=== PATIENT | female | born 1995 | race Caucasian/White ===

== ENCOUNTER 2020-06-13 17:14 | Emergency (ER) | payer OTHER, SELFPAY ==
--- NOTE | ~2020-06-13 | XR_ITS ---
EXAMINATION: XR foot RT min 3V EXAM DATE: 06/13/2020 17:53 INDICATION: States injured one month ago with right foot pain and numbness aerated states a prior inj ury one year ago. TECHNIQUE: Right foot dorsoplantar, lateral and oblique projections obtained and reviewed. Right ank le frontal, lateral and oblique projections obtained and reviewed. There is no prior study for yong simon. FINDINGS: Right metatarsal bones unremarkable. The right ankle mortise appears intact. No periost eal reaction or band of sclerosis to suggest subacute stress fracture. There are no bony erosions obi ntified. There are no acute fractures or dislocations identified. There is no subcutaneous gas. The soft tissue is unremarkable. There are no radiopaque foreign bodies. IMPRESSION: Unremarkable right foot exam. Reviewed, dictated and finalized at location A.
[2020-06-13 17:33] VITALS: BP 144/95; PULSE 82; RESP 20; TEMP 36.6; O2SAT 100
--- NOTE | 2020-06-13 19:05 | ED.LOWEXIN ---
HPI - Extremity Injury (Lower) General Chief Complaint: Extremity Injury, Lower Stated Complaint: R FOOT NUMB/THROBBING FOR INT FOR MONTHS Time Seen by Provider: 06/13/20 18:05 History of Present Illness HPI Narrative: Patient is a 25-year-old female who presents ER with throbbing right foot pain. Patient reports that she had a foot injury over a year ago that caused her to have to wear a boot and [place] a [place] period. Last night she states she stepped on her foot wrong and she developed some numbness and tingling. Today it has been throbbing. It is worse with palpation over the top of the foot. No swelling or bruising. No numbness tingling at this time. Related Data Allergies Allergy/AdvReac Type Severity Reaction Status Date / Time No Known Drug Allergies Allergy Unknown X Verified 06/13/20 18:01 Fresh Fruit Allergy Intermediate SWELLING/NU Uncoded 06/13/20 17:36 MBNESS Review of Systems Musculoskeletal: Comments: foot pain Neurologic: Reports numbness and Denies weakness PMFSH Past Medical History Medical History (Updated 06/13/20 @ 19:19 by Kana Baig MD) Healthy female adult Surgical History Surgical History (Updated 06/13/20 @ 19:17 by Kana Baig MD) Previous section Social History Social History Gender identity (if verbalized by the patient): Female Exam Narrative: Exam Narrative: GENERAL: Well-appearing, well-nourished, and in no acute distress. HEAD: Normocephalic, atraumatic. EXTREMITIES: Normal range of motion. No edema. Tender to palpation with the top of the right foot. No swelling or bruising. Neurologically intact. SKIN: Warm, dry, no rash. NEURO: Alert and oriented x3. PSYCH: Normal mood and affect. Course Course Emergency Course: Patient informed of results. Recommend wearing her walking boot at home. She cannot wear it at work she may use crutches to bear weight as tolerated. She is to follow-up with primary care physician. Vital Signs Vital signs: Vital Signs Temperature 97.8 F 06/13/20 17:33 Pulse Rate 82 06/13/20 17:33 Respiratory Rate 20 06/13/20 17:33 Blood Pressure 144/95 H 06/13/20 17:33 Pulse Oximetry 100 06/13/20 17:33 Temperature 97.8 F 06/13/20 17:33 Pulse Rate 82 06/13/20 17:33 Respiratory Rate 20 06/13/20 17:33 Blood Pressure 144/95 H 06/13/20 17:33 Pulse Oximetry 100 06/13/20 17:33 Discharge Plan Discharge Clinical Impression: Foot sprain Patient Disposition: Home, Self-Care Condition: Stable Instructions: Foot Sprain (ED) Additional Instructions: Return the ER if you have chest pain or shortness of breath, cannot keep down food or water, you suffered no injury to your foot, rehab is swollen and enlarged calf and foot. Prescriptions: New naproxen 500 mg tablet 500 mg PO BID Qty: 20 RF: 0 Follow-up/Referrals: UNKNOWN,DOCTOR [Primary Care Provider] - 1 Week
== END 2020-06-13 19:26 | disposition home or self-care (01) ==
PROVIDERS: Emergency Provider Emergency Medicine
DX: S93.601A Unspecified sprain of right foot, initial encounter (principal); X50.9XXA Other and unspecified overexertion or strenuous movements or postures, initial encounter
CPT/HCPCS: 73630; 99283

== ENCOUNTER 2020-06-19 16:46 | Emergency (ER) | payer OTHER, SELFPAY ==
--- NOTE | ~2020-06-19 | XR_ITS ---
EXAMINATION: XR foot RT min 3V EXAM DATE: 06/19/2020 17:29 INDICATION: Continued pain after old injury, dorsal right foot pain. TECHNIQUE: Right foot dorsoplantar, lateral and oblique projections obtained and reviewed. Compariso n is made to prior examination from 06/13/2020. FINDINGS: Right metatarsal bones unremarkable. No periosteal reaction or band of sclerosis to sugges t subacute stress fracture. There are no bony erosions identified. No evidence of tarsal coalition. There are no acute fractures or dislocations identified. There is no subcutaneous gas. The soft ti ssue is unremarkable. There are no radiopaque foreign bodies. There is no significant interval aldo nge. IMPRESSION: Unremarkable right foot exam. Reviewed, dictated and finalized at location A.
[2020-06-19 16:48] VITALS: BP 142/110; PULSE 90; RESP 16; TEMP 36.1; O2SAT 100
--- NOTE | 2020-06-19 18:20 | ED.LOWEXIN ---
HPI - Extremity Injury (Lower) General Chief Complaint: Extremity Injury, Lower Stated Complaint: Right Foot Pain after Fall Time Seen by Provider: 06/19/20 18:05 Source: patient Mode of arrival: ambulatory Limitations: no limitations History of Present Illness HPI Narrative: This is a 25-year-old female that presents the emergency department for right foot pain x1 week. Reports several previous injuries to the foot. Is unsure of a certain recent injury. Reports pain is on the dorsal surface of the foot and worse with weightbearing. Relieved with rest and elevation. Reports she has an appointment to see an orthopedic doctor next week. Denies decreased range of motion or numbness. Related Data Home Medications Medication Instructions Recorded Confirmed No Home Medications 06/19/20 06/19/20 Allergies Allergy/AdvReac Type Severity Reaction Status Date / Time Fresh Fruit Allergy Intermediate SWELLING/NU Uncoded 06/19/20 16:54 MBNESS Review of Systems Review of Systems: Narrative: CONSTITUTIONAL: Denies fever SKIN: Denies rash MUSCULOSKELETAL: Reports joint pain, and myalgia. NEUROLOGIC: Denies numbness All systems reviewed & are unremarkable except as noted in HPI and below PMFSH Past Medical History Medical History (Updated 06/19/20 @ 18:27 by Stephanie Burns PA-C) Healthy female adult Surgical History Surgical History (Updated 06/13/20 @ 19:17 by Kana Baig MD) Previous section Social History Social History Gender identity (if verbalized by the patient): Female Exam Narrative: Exam Narrative: GENERAL: Well-appearing, well-nourished, and in no acute distress. HEAD: Normocephalic, atraumatic. EYES: EOMI. EXTREMITIES: Normal range of motion. No edema, erythema or obvious deformity. Normal sensation. Normal DP pulses. Normal posterior tibial pulses SKIN: Warm, dry, no rash. NEURO: No focal deficits. Alert and oriented x3. PSYCH: Normal mood and affect Course Vital Signs Vital signs: Vital Signs Temperature 97 F L 06/19/20 16:48 Pulse Rate 90 06/19/20 16:48 Respiratory Rate 16 06/19/20 16:48 Blood Pressure 142/110 H 06/19/20 16:48 Pulse Oximetry 100 06/19/20 16:48 Temperature 97 F L 06/19/20 16:48 Pulse Rate 90 06/19/20 16:48 Respiratory Rate 16 06/19/20 16:48 Blood Pressure 142/110 H 06/19/20 16:48 Pulse Oximetry 100 06/19/20 16:48 MDM - Extremity Injury (Lower) MDM Narrative Medical decision making narrative: Patient presents to the emergency department for right foot pain. Is unsure of a certain injury. Reports several previous injuries to the foot. Right foot x-ray is without acute findings. Patient is neurovascularly intact. Patient will be given Carlos Alberto wrap and crutches. Instructed to rest, ice and elevate. She is to follow-up with orthopedics. She was given warnings to return to the ER Imaging Data Radiologist's impression: ITS Impressions Foot X-Ray 06/19/20 17:31 IMPRESSION: Unremarkable right foot exam. Critical Care Time Critical Care Time Critical Care Time: No Discharge Plan Discharge Clinical Impression: Chronic pain in right foot Patient Disposition: Home, Self-Care Condition: Stable Instructions: Foot Sprain (ED) Additional Instructions: Return to the emergency department if you experience fever, redness and swelling of your leg, numbness, or any other symptoms that are concerning to you Wear CARLOS ALBERTO wrap and use crutches. No weight on the affected leg. Ice and elevate extremity. Tylenol or ibuprofen as needed for pain Follow up with orthopedics for further care. Prescriptions: No Action No Home Medications RF: 0 Follow-up/Referrals: PHYSICIAN,POLITICAL RESEARCH SCIENTIST [Primary Care Provider] - Stand Alone Forms: Work/School Release IP
== END 2020-06-19 18:53 | disposition home or self-care (01) ==
PROVIDERS: Emergency Provider Emergency Medicine
DX: M79.671 Pain in right foot (principal); G89.29 Other chronic pain
CPT/HCPCS: 73630; 99283

== ENCOUNTER 2020-12-19 10:50 | Emergency (ER) | payer OTHER, SELFPAY ==
--- NOTE | ~2020-12-19 | US_ITS ---
EXAMINATION: US pelvic complete w TV DATE: 12/19/2020 13:41 INDICATION: Right-sided pelvic pain TECHNIQUE: Multiple transabdominal and endovaginal sonographic images of the pelvis were obtained. COMPARISON: CT dated 05/01/2019 FINDINGS: The uterus measures 9.6 x 5.1 x 5.6 cm. The endometrial complex measures <4 mm on the transabdominal imaging. A linear echogenic and shadowing IUD is seen within the endometrial canal of the uterine fu ndus also on the transabdominal view. COVID 19 endometrial complex are now clearly visualized on the transvaginal image due to refraction artifact from the margins of the intervening lower uterine segme nt. The right ovary measures 3.0 x 1.9 x 2.1 cm. The left ovary measures 4.1 x 2.9 x 2.3 cm. And cont ains a 1.9 cm anechoic left ovarian cyst. Vascular flow identified in the ovaries on color Doppler. T here is no free fluid in the pelvis. IMPRESSION: 1. IUD centered in the endometrial canal of the uterine fundus. 2. 1.9 cm left ovarian cyst/follicle. Reviewed, dictated and finalized at location A.
[2020-12-19 10:52] VITALS: BP 138/73; PULSE 74; RESP 18; TEMP 36.9; O2SAT 100
--- NOTE | 2020-12-19 11:42 | ED.ABDPAIN ---
HPI - Abdominal Pain General Chief Complaint: Abdominal Pain Stated Complaint: abd pain, hx ovarian cysts Time Seen by Provider: 12/19/20 11:36 Source: patient Mode of arrival: ambulatory Limitations: no limitations History of Present Illness HPI narrative: This is a 25 year old female that presents to the ER for right sided pelvic pain x 2 days. Reports the pain is sharp in nature. It is constant, but intermittently worse. She does have history of ovarian cysts and reports the pain is similar. Reports she should have started her cycle at the beginning of this month, but did not. She has not taken a test yet. Denies fever, nausea, vomiting, dysuria, or hematuria. Related Data Home Medications Medication Instructions Recorded Confirmed Adults Multivitamin 12/19/20 Allergies Allergy/AdvReac Type Severity Reaction Status Date / Time Fresh Fruit Allergy Intermediate SWELLING/NU Uncoded 12/19/20 10:56 MBNESS Review of Systems Review of Systems: Narrative: CONSTITUTIONAL: Denies fever GASTROINTESTINAL: Reports abdominal pain. Denies nausea, vomiting GENITOURINARY: Denies dysuria or hematuria. All systems reviewed & are unremarkable except as noted in HPI and below PMFSH Past Medical History Medical History (Updated 12/19/20 @ 14:41 by Stephanie Burns PA-C) Healthy female adult Surgical History Surgical History (Updated 06/13/20 @ 19:17 by Kana Baig MD) Previous section Social History Social History Gender identity (if verbalized by the patient): Female Exam Narrative: Exam Narrative: GENERAL: Well-appearing, well-nourished, and in no acute distress. HEAD: Normocephalic, atraumatic. EYES: EOMI. CHEST: Clear to auscultation. No respiratory distress. No wheezes rales or rhonchi HEART: Regular rate and rhythm. No murmur heard. Normal peripheral pulses. ABDOMEN: Soft, nondistended, normal active bowel sounds. Mild tenderness to palpation in the RLQ, without guarding EXTREMITIES: Normal range of motion. No edema. SKIN: Warm, dry, no rash. NEURO: No focal deficits. Alert and oriented x3. PSYCH: Normal mood and affect Course Vital Signs Vital signs: Vital Signs Temperature 98.5 F 12/19/20 10:52 Pulse Rate 74 12/19/20 10:52 Respiratory Rate 18 12/19/20 10:52 Blood Pressure 138/73 12/19/20 10:52 Pulse Oximetry 100 12/19/20 10:52 Temperature 98.5 F 12/19/20 13:15 Pulse Rate 89 12/19/20 14:28 Respiratory Rate 14 12/19/20 14:28 Blood Pressure 118/76 12/19/20 14:28 Pulse Oximetry 97 12/19/20 14:28 MDM - Abdominal Pain MDM Narrative Medical decision making narrative: Patient presents to the emergency department for right-sided pelvic pain intermittent over the last couple of days. She is afebrile and nontoxic-appearing. CBC is without leukocytosis. Metabolic panel and lipase without concerning findings. UA without evidence of infection. Bedside test is negative. Pelvic ultrasound is without acute findings. Shows normal vascular flow to the ovaries. Shows a 1.9 cm left ovarian cyst. No free fluid in the pelvis. Patient updated on case findings. Denies any concern for STDs at this time. 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 She was given warnings to return to the ER Lab Data Attestation: I reviewed the patient's lab results. Result diagrams: 12/19/20 12:21 12/19/20 12:21 Labs: Lab Results 12/19/20 12/19/20 12/19/20 Range/Units 12:21 12:21 12:21 WBC 6.7 (4.5-10.0) K/mm3 RBC 5.56 H (4.2-5.4) M/mm3 Hgb 15.4 H (12.0-15.0) g/dL Hct 46.8 (37.0-47.0) % MCV 84.2 (80-100) fl MCH 27.7 (26-34) pg MCHC 32.9 (32-36) g/dl RDW 12.3 (11.5-14.5) % Plt Count 251 (150-375) k/mm3 MPV 11.3 H (7.4-10.4) fl Immature Gran % (Auto) 0.2 (0-0.5) % Neut % (Auto) 59.4 (45.5-73.1) % Lymph % (Auto) 34.2 (18.3-44.2) % [place] % (Auto) 4
--- NOTE | 2020-12-19 12:01 | PC.NURSE ---
unsuccessful at first two attempts of an IV. Other RN at bedside looking for IV placement with ultrasound.
[2020-12-19 12:03] VITALS: BP 124/75; PULSE 84; RESP 16; O2SAT 98
[2020-12-19 12:31] LABS: Basophils Percent Auto 0.3 % (0.2-1.2); Eosinophils Absolute Auto 0.1 K/mm3 (0-0.3); Eosinophils Percent Auto 1.1 % (0-4.4); Hematocrit 46.8 % (37.0-47.0); Hemoglobin 15.4 g/dL (12.0-15.0); Immature Granulocyte Absolute 0.01 K/mm3 (0.00-0.031); Immature Granulocyte Percent A 0.2 % (0-0.5); Lymphocytes Absolute Auto 2.28 K/mm3 (0.9-3.2); Lymphocytes Percent Auto 34.2 % (18.3-44.2); Mean Corpuscular HGB Conc 32.9 g/dl (32-36); Mean Corpuscular Hemoglobin 27.7 pg (26-34); Mean Corpuscular Volume 84.2 fl (80-100); Mean Platelet Volume 11.3 fl (7.4-10.4); Monocytes Absolute Auto 0.3 K/mm3 (0.1-0.6); Monocytes Percent Auto 4.8 % (2.6-8.5); Neutrophils Percent Auto 59.4 % (45.5-73.1); Platelet Count Result 251 k/mm3 (150-375); Red Blood Count 5.56 M/mm3 (4.2-5.4); Red Cell Distribution Width 12.3 % (11.5-14.5); White Blood Count 6.7 K/mm3 (4.5-10.0)
[2020-12-19 12:40] LABS: Alanine Aminotransferase 16 U/L (4-35); Albumin Level 4.7 g/dL (3.5-5.1); Alkaline Phosphatase 58 U/L (38-126); Anion Gap 8 mmol/L (8-16); Aspartate Amino Transferase 25 U/L (14-36); Bilirubin,Total 1.8 mg/dL (0.2-1.3); Blood Urea Nitrogen 12 mg/dL (7-17); Calcium 9.5 mg/dL (8.4-10.2); Carbon Dioxide 27 mmol/L (22-30); Chloride 107 mmol/L (98-107); Estimated Glomerular Filt Rate > 60; Glucose 115 mg/dL (65-105); Lipase 76 U/L (23-300); Potassium 3.6 mmol/L (3.4-5.0); Sodium 142 mmol/L (137-145)
[2020-12-19 12:55] LABS: Beta HCG Quantitative < 2.39 mIU/ML
[2020-12-19 13:01] VITALS: BP 105/63; PULSE 77; RESP 18; O2SAT 97
[2020-12-19 13:15] VITALS: TEMP 36.9
[2020-12-19 13:24] LABS: Add Urine Microscopic? YES; Appearance Urine Cloudy (Clear); Bacteria Urine Trace /hpf; Bilirubin Urine Negative (Negative); Blood Urine Negative (Negative); Color Urine Yellow (Yellow); Glucose Urine UA Negative (Negative); Ketones Urine Negative (Negative); Leukocyte Esterase Ur Negative LEU/UL (Negative); Mucus Urine Heavy /lpf; Nitrate Urine Negative (Negative); Protein Urine 1+ mg/dL (Negative); Specific Grav Ur 1.025 (1.001-1.035); Squamous Epithelial Cell Urine Rare /hpf (Few); WBC Urine 0-3 /hpf
[2020-12-19 14:28] VITALS: BP 118/76; PULSE 89; RESP 14; O2SAT 97
== END 2020-12-19 14:54 | disposition home or self-care (01) ==
PROVIDERS: Physician Assistant; Emergency Provider Emergency Medicine
DX: R10.2 Pelvic and perineal pain (principal); N83.202 Unspecified ovarian cyst, left side; Z97.5 Presence of (intrauterine) contraceptive device
CPT/HCPCS: 36415; 76830; 76856; 80053; 81001; 81025; 83690; 84702; 85025; 96365; 99284; J0131